=== PATIENT | female | born 1940 | race Caucasian/White ===

== ENCOUNTER 2017-05-12 09:23 | Emergency (ER) | payer OTHER ==
[~2017-05-12] VITALS: Ht 157.5 cm; Wt 46.5 kg
[~2017-05-12 09:23] MED LIST: ACET-1256 PO; CHOL2000 PO; DONE10TA12 PO; LEVO25TA5 PO; MEMA1CAP2 PO; METO25TA56 PO; NRV5 PO; NYST100098 TOP; RALO60TA12 PO; SENN-61 PO; SERT25TA PO
[2017-05-12 09:34] VITALS: TEMP 36.8; Ht 157.5 cm; Wt 46.5 kg
[2017-05-12] MEDS ORDERED: NYST1POW7 (09:39)
[2017-05-12] MEDS ORDERED: MIRT15TA PO (09:39)
[2017-05-12] MEDS ORDERED: LIDOCAINE/EPINEPH/TETRACAINE 1 EA SYR EXT STA (09:43)
--- NOTE | 2017-05-12 09:59 | EMERGENCY ROOM VISIT NOTE ---
History Report prepared by Ashlee: Anabella Candelario Under the Supervision of: Dr. Carlos Reaves M.D. First contact with patient: 09:31 Chief Complaint: LACERATION/CUT (SUT/DERMABOND) Stated Complaint: LACERATION History of Present Illness The patient is a 77 year old female who presents to the Emergency Room with complaints of an episode of a fall occurring OCC MED PHYSICIAN. The patient fell from the prudence lift sling this morning at [facility]. She was being transferred from bed to shower chair. Two hospice aides were present during the fall. They reported that she slid from the sling and fell to the floor. She hit her head during the fall. She has a laceration to her head. Neon Tube Bender is at bedside now. The patient has a history of a subdural. She is presently on hospice. Neon Tube Bender states that at baseline the patient is able to talk and sometimes is able to feed herself. She does not walk or get out of bed. She is at her baseline now per caregiver. The history is limited secondary to the patient's mental status. Source of History: patient, transfer records, family, halfway notes, caregiver History Limited By: AMS Onset: OCC MED PHYSICIAN Position: other (global) Quality: other (fall) Timing: other (episode) Note: Pt has laceration to head. Review of Systems ROS is limited secondary to the patient's mental status. Past Medical & Surgical Medical Problems: (1) Alzheimer's dementia (2) Bronchitis (3) Hx Of Breast Malignancy (4) Hypertension Nos (5) Hypothyroidism Nos (6) Osteoporosis (7) Subdural hematoma Surgical Problems: (1) History of total abdominal hysterectomy (2) Hx of appendectomy (3) Hx of cholecystectomy Old medical records were reviewed. Nurse's notes were reviewed and I agree with. Family History Hypertension Social History Smoking Status: Former Smoker Drug Use: none Housing Status: halfway Occupation Status: retired Current/Historical Medications Scheduled Levothyroxine Sodium (Levothyroxine Sodium), 25 MCG PO DAILY Mirtazapine (Remeron), 15 MG PO HS Senna (Senokot), 1 TAB PO BID Scheduled PRN Acetaminophen (Tylenol), 1,000 MG PO Q6 PRN for SEVERE PAIN Miscellaneous Medications Nystatin (Topical) (Nystatin) Allergies Coded Allergies: Penicillins (Verified Allergy, Unknown, unknown, 05/12/17) STATES SHE THINKS SHE IS ALLERGIC BECAUSE IS ALLERGIC TO MOLDS Uncoded Allergies: MOLD (Allergy, Intermediate, HEAD CONGESTION, 05/10/13) Physical Exam Vital Signs Date Time Temp Pulse Resp B/P (MAP) Pulse Ox O2 Delivery O2 Flow Rate FiO2 05/12/17 12:45 79 16 127/55 95 05/12/17 11:25 80 16 121/74 96 Room Air 05/12/17 09:34 36.8 74 156/84 96 Room Air Physical Exam General: Well developed well nourished older female in no acute distress, breathing comfortably on room air. Normal speech HEENT: Normal cephalic, large hematoma on posterior scalp with 5 cm laceration, no significant active bleeding. Pupils are equal round and reactive to light. Extraocular movements are intact. Oropharynx is pink with moist mucous membranes. No swelling of the mouth lips or tongue. Neck: Supple with a midline trachea. No meningeal signs or stiffness, no JVD or bruits. No Stridor. Chest: Clear to auscultation bilaterally. No wheezes or rhonchi. No increased work of breathing. Heart: regular rate and rhythm. Abdomen: Soft nontender, nondistended without rebound guarding or rigidity. Extremities: No cyanosis clubbing or edema. No calf tenderness or assymetry Spine/Back. Non tender to palpation. No CVA tenderness Skin: Good turgor without rashes. Healing grade 1 decubitus on her buttocks. Neurologic exam: Able to talk, moves all extremities. Per caregiver at bedside, pt appears to be at her baseline Medical Decision & Procedures ER Provider Diagnostic Interpretation: Radiology results as stated below per my review and radiologist interpretation: HEAD WITHOUT CONTRAST (CT) CLINICAL HISTORY: 77 years-old Female with eval for trauma. Acute head injury status post fall. TECHNIQUE: Multiple axial CT images of the head were obtained without contrast. A dose lowering technique was utilized adhering to the principles of ALARA. CT DOSE: 537.48 mGy.cm COMPARISON: CT head 05/06/2016. FINDINGS: There is moderate atrophy with ex vacuo ventriculomegaly. Remote eb hole of the right frontal calvarium with adjacent calcification and encephalomalacia within the adjacent right frontal lobe is noted with degree of encephalomalacia increased from prior. Mild background chronic microvascular ischemic changes are suspected. There is progressive encephalomalacia of the left cerebellar hemisphere. No acute intracranial hemorrhage, midline shift, abnormal extra axial collections, hydrocephalus or mass. Remote left occipital depressed fracture is again seen. Mastoid air cells, middle ear cavities and paranasal sinuses are generally clear. There is a large left parietal and occipital scalp hematoma, 5.4 x 1.4 cm with areas of subcutaneous emphysema compatible with associated penetrating trauma. No acute calvarial fracture identified. IMPRESSION: 1. Large left parieto-occipital scalp hematoma with subcutaneous emphysema compatible with penetrating trauma. No acute intracranial abnormality, intracranial hemorrhage or calvarial fracture. 2. Chronic changes as above with mildly progressive right frontal lobe and left cerebellar hemisphere encephalomalacia. The above report was generated using voice recognition software. It may contain grammatical, syntax or spelling errors. Electronically signed by: Christophe Epstein M.D. 05/12/2017 10:27 AM Dictated Date/Time: 05/12/2017 10:21 AM Medications Administered Medications (Trade) Dose Ordered Sig/Delfino Route Start Time Stop Time Status Last Admin Dose Admin Tetracaine/ Epinephrine/ Lidocaine (L.e.t. Gel 4%/ 1:100/0.5%) 1 ea NOW STAT EXT 05/12/17 09:43 05/12/17 09:44 DC 05/12/17 09:54 1 EA Procedure Location: Scalp Total length: 5 cm Complexity: Simple Verbal consent was obtained after the risks and benefits were explained, including but not limited to bleeding, scarring, infection, pain, and bone/ nerve damage. At this time, the risks of the procedure are less than the risks of NOT performing the procedure. A time out was taken and the correct patient and site identified. The scalp was prepped with betadine. The target area was anesthetized with L.e.t. Gel. Copious irrigation was performed using saline. The skin was re-prepped with betadine, the hair cleared from the wound, and a sterile field set. The wound was explored for foreign bodies and none found. Debridement was not performed. The wound edges were approximated using 10 surgical juana in the standard fashion. Hemostasis and excellent approximation was achieved. Antibacterial ointment and a sterile dressing applied. Detailed wound care instructions and signs and symptoms of infection reviewed with the patient's caregiver. No complications and the patient tolerated the procedure well. ED Course 0931: Past medical records reviewed. The patient was evaluated in room B9, and a complete history and physical examination were performed. 0943: L.e.t Gel 4% EXT 0944: I discussed the treatment plan with the patient's son via telephone. He is her POA. He confirms that the patient is on hospice care with comfort measures only. He is requesting a CT of her head. 1059: I reassessed the patient and she is doing well. I performed a staple repair, please see the procedure note for further details. I discussed the results and treatment plan with the patient's caregiver. I answered all pertaining questions that she had. She expressed understanding and verbalized agreement. The patient will be discharged home. Medical Decision Differential diagnoses includes skull fracture, laceration, intracranial hemorrhage. This patient comes in after suffering a mechanical fall. According to her pulsed she is comfort measures only and a hospice patient. This clearly was a mechanical fall by history. She seems to be at her normal neurologic baseline according to the caregivers at the bedside. I did call and talk to the son he does wish to have a CAT scan as she has had a subdural in the past. CAT scan shows no intracranial hemorrhage or any subdural. She has a very large hematoma externally which can be seen on exam. She is in a halfway up-to- date on her tetanus. The wound was cleansed and I closed with juana. She will have these removed in 7 days she should return if any problems with the wound, not acting like self, any new problems or concerns. They're happy with plan and she was discharged back to the halfway. Medication Reconcilliation Current Medication List: was personally reviewed by me Blood Pressure Screening Patient's blood pressure: Normal blood pressure Impression Primary Impression: Concussion Additional Impressions: Scalp laceration Scalp hematoma Scribe Attestation The scribe's documentation has been prepared under my direction and personally reviewed by me in its entirety. I confirm that the note above accurately reflects all work, treatment, procedures, and medical decision making performed by me. Departure Information Dispostion Home / Self-Care Referrals Deysi Pack D.O. (PCP) Forms HOME CARE DOCUMENTATION FORM, IMPORTANT VISIT INFORMATION Patient Instructions My [facility] Additional Instructions Rest. Be careful when washing combing her hair Juana to be removed in one week here or at your doctor Apply ice intermittently as you have a large hematoma Return if: Worsening of symptoms, not acting like self, any problems with the wound such as bleeding or redness or pus, any new problems or concerns Follow-up with your doctor this week for recheck Problem Qualifiers Primary Impression: Concussion Encounter type: initial encounter Loss of consciousness presence/duration: without LOC Qualified Codes: S06.0X0A - Concussion without loss of consciousness, initial encounter Additional Impressions: Scalp laceration Encounter type: initial encounter Qualified Codes: S01.01XA - Laceration without foreign body of scalp, initial encounter Scalp hematoma Encounter type: initial encounter Qualified Codes: S00.03XA - Contusion of scalp, initial encounter
--- NOTE | 2017-05-12 10:28 | DIAGNOSTIC IMAGING REPORT ---
HEAD WITHOUT CONTRAST (CT) CLINICAL HISTORY: 77 years-old Female with eval for trauma. Acute head injury status post fall. TECHNIQUE: Multiple axial CT images of the head were obtained without contrast. A dose lowering technique was utilized adhering to the principles of ALARA. CT DOSE: 537.48 mGy.cm COMPARISON: CT head 05/06/2016. FINDINGS: There is moderate atrophy with ex vacuo ventriculomegaly. Remote eb hole of the right frontal calvarium with adjacent calcification and encephalomalacia within the adjacent right frontal lobe is noted with degree of encephalomalacia increased from prior. Mild background chronic microvascular ischemic changes are suspected. There is progressive encephalomalacia of the left cerebellar hemisphere. No acute intracranial hemorrhage, midline shift, abnormal extra axial collections, hydrocephalus or mass. Remote left occipital depressed fracture is again seen. Mastoid air cells, middle ear cavities and paranasal sinuses are generally clear. There is a large left parietal and occipital scalp hematoma, 5.4 x 1.4 cm with areas of subcutaneous emphysema compatible with associated penetrating trauma. No acute calvarial fracture identified. IMPRESSION: 1. Large left parieto-occipital scalp hematoma with subcutaneous emphysema compatible with penetrating trauma. No acute intracranial abnormality, intracranial hemorrhage or calvarial fracture. 2. Chronic changes as above with mildly progressive right frontal lobe and left cerebellar hemisphere encephalomalacia. The above report was generated using voice recognition software. It may contain grammatical, syntax or spelling errors. Electronically signed by: Christophe Epstein M.D. 05/12/2017 10:27 AM Dictated Date/Time: 05/12/2017 10:21 AM
[2017-05-12 12:45] VITALS: BP 127/55; PULSE 79; O2SAT 95
== END 2017-05-12 12:57 | disposition home or self-care (01) ==
LOC: EDBD 09:23 → C.EDB 09:25
DX: S06.0X0A Concussion without loss of consciousness, initial encounter (principal); S01.01XA Laceration without foreign body of scalp, initial encounter; W17.89XA Other fall from one level to another, initial encounter; Z51.5 Encounter for palliative care; G30.9 Alzheimer's disease, unspecified; F02.80 Dementia in other diseases classified elsewhere, unspecified severity, without behavioral disturbance, psychotic disturbance, mood disturbance, and anxiety; Z85.3 Personal history of malignant neoplasm of breast; I10 Essential (primary) hypertension; E03.9 Hypothyroidism, unspecified; M81.0 Age-related osteoporosis without current pathological fracture; Z90.710 Acquired absence of both cervix and uterus; Z90.49 Acquired absence of other specified parts of digestive tract; Z82.49 Family history of ischemic heart disease and other diseases of the circulatory system; Z87.891 Personal history of nicotine dependence; Z79.899 Other long term (current) drug therapy